=== PATIENT | female | born 1990 | race Caucasian/White ===

== ENCOUNTER 2025-06-13 23:22 | Emergency (ER) | payer OTHER, SELFPAY ==
--- NOTE | ~2025-06-13 | CT_ITS ---
CLINICAL HISTORY: trauma CT head without contrast Comparison: None provided. Findings: No intracranial mass, midline shift, hydrocephalus, or acute hemorrhage. Visualized paranasal sinuses and mastoid air cells appear clear. No acute skull fracture. Mild right frontoparietal scalp swelling. Impression: 1. No acute intracranial abnormality. No acute intracranial hemorrhage. 2. Mild right frontoparietal scalp swelling. No acute calvarial fracture. This document has been electronically signed by: Huang Norris MD on 06/14/2025 01:34:47
--- NOTE | ~2025-06-13 | XR_ITS ---
CLINICAL HISTORY: trauma 3 view right hand Comparison: None provided Findings: Bones intact. No dislocations. No radiopaque foreign body. IMPRESSION: 1. No acute fracture or dislocation injury identified at the right hand This document has been electronically signed by: Huang Norris MD on 06/14/2025 00:32:25
--- NOTE | ~2025-06-13 | CT_ITS ---
CLINICAL HISTORY: trauma CT cervical spine without contrast Comparison: None provided. Findings: The visualized portions of the bilateral lung apices appear clear. There is reversal of the normal cervical lordosis. No cervical spondylolisthesis identified. No acute fractures or dislocations. No significant degenerative endplate changes at the cervical spine. Impression: 1. Reversal of the normal cervical lordosis. This finding is nonspecific and may be positional and/or related to muscle spasm. No acute fracture or dislocation injury identified at the cervical spine. This document has been electronically signed by: Huang Norris MD on 06/14/2025 01:21:13
--- NOTE | ~2025-06-13 | CT_ITS ---
CLINICAL HISTORY: facial trauma CT maxillofacial without contrast Comparison: None provided. Findings: No acute fractures. Temporomandibular joints intact. The bilateral globes appear intact. No retrobulbar hematoma. Paranasal sinuses and mastoid air cells appear clear. Mild soft tissue swelling over the anterior aspect of the left maxilla on axial image number 97 of series 10. Impression: 1. No acute fracture or dislocation injury of the facial bones identified. 2. Mild soft tissue swelling identified over the anterior aspect of the maxilla as described above, suggesting posttraumatic change. This document has been electronically signed by: Huang Norris MD on 06/14/2025 01:32:10
[2025-06-13 23:29] VITALS: BP 130/71; PULSE 96; RESP 16; TEMP 36.6; O2SAT 98; BMI 28.2
--- NOTE | 2025-06-13 23:51 | PC.NURSE ---
hand and face wounds cleaned
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
[2025-06-14 00:18] LABS: UPreg QC Valid YES
--- OUTSIDE RECORDS SUMMARY | 2025-06-14 00:51 | XMS_ITS | Clinical Summary ---
Author Organization [facility] Address [address] [place] [address] Care Team Providers Care General Cleaner Name Role Phone Pcp, No Primary Care Provider Unavailabl e Social History Tobacco Use Types Packs/Day Years Used Date Smoking Tobacco: Never Assessed Comments Unknown Sex and Gender Information Value Date Recorded Sex Assigned at Not on file Legal Sex Female 3:25 PM EDT Gender Identity Not on file Sexual Orientation Not on file Plan of Treatment Health Maintenance Due Date Last Done Comments Hepatitis C Virus Screening 1990 HIV Screening 2003 DTaP/Tdap/Td Vaccines (1 - Tdap) 2009 Hepatitis B Vaccines (1 of 3 - 19+ 3-dose series) 2009 Pap Smear (Ages 21-65) 2011 Influenza Vaccine 02/15/2025 COVID-19 Vaccine (1 - 2023-2 5 season) 2025 HPV Vaccines (No Doses Required) Completed Pneumococcal Vaccine: Pediat kim (0-5 Years) and At-Risk Patients (6 to 49 Years) Aged Out No longer eligible b ased on patient's age to complete this topic Insurance [facility] [employer] [facility] Care Teams General Cleaner Relationship Specialty Start Date End Date Pcp, No [address] [place] [address] PCP - General 04/02/20
--- OUTSIDE RECORDS SUMMARY | 2025-06-14 00:51 | XMS_ITS | Encounter Summary ---
Author Organization [facility] Address [address] [place] [address] Care Team Providers Care Certification Engineer Name Role Phone Pcp, No Primary Care Provider Unavailabl e Encounter Details Date Type Department Care Team (Late st Contact Info) Description 04/03/2020 Scanned Document [facility] [address] [place] [address] Provider, Generic Social History Tobacco Use Types Packs/Day Years Used Date Smoking Tobacco: Never Assessed Comments Unknown Sex and Gender Information Value Date Recorded Sex Assigned at Not on file Legal Sex Female 3:25 PM EDT Gender Identity Not on file Sexual Orientation Not on file COVID-19 Exposure Response Date Recorded In the last month, have you been in contact with someone who was confirmed or suspected to have Coronavirus / COVID-19? No / Unsure 04/02/2020 4:02 PM EDT documented as of this encounter Plan of Treatment Not on file documented as of this encounter Procedures Procedure Name Priority Date/Time Associated Diagnosis Comments BOOKING SHEETS-SCAN 04/03/2020 documented in this encounter Results * BOOKING SHEETS-SCAN (04/03/2020) Narrative 04/03/2020 Ordered by an unspecified provider. us Generic Provider HX AMB PROCEDURES Final Result documented in this encounter Visit Diagnoses Not on filedocumented in this encounter Care Teams Certification Engineer Relationship Specialty Start Date End Date Pcp, No [address] [place] [address] PCP - General 04/02/20 documented as of this encounter
[2025-06-14] MEDS: Diphth,Pertus(ACell),Tet Adult 0.5 ML SYRINGE IM (00:59)
[2025-06-14 01:43] VITALS: BP 109/63; PULSE 75; RESP 18; TEMP 36.2; O2SAT 98
== END 2025-06-14 01:44 | disposition home or self-care (01) ==
PROVIDERS: Emergency Provider Emergency Medicine
DX: S60.511A Abrasion of right hand, initial encounter (principal); S00.81XA Abrasion of other part of head, initial encounter; S39.91XA Unspecified injury of abdomen, initial encounter; M54.2 Cervicalgia; R51.9 Headache, unspecified; M79.641 Pain in right hand; R10.22 Pelvic and perineal pain left side; R40.2410 Glasgow coma scale score 13-15, unspecified time; X58.XXXA Exposure to other specified factors, initial encounter; Y93.9 Activity, unspecified; Y92.9 Unspecified place or not applicable; Y99.8 Other external cause status; Z79.899 Other long term (current) drug therapy; Z23 Encounter for immunization
CPT/HCPCS: 12041; 12051; 70450; 70486; 72125; 73130; 76604; 76705; 81025; 90471; 90715; 93308; 99284

== ENCOUNTER → 2025-06-13 23:32 | Outpatient (BNV) | payer OTHER, SELFPAY | PROVIDERS: Emergency Provider Emergency Medicine; Visit Provider Radiology Diagnostic Radiology | DX: R22.0 Localized swelling, mass and lump, head (principal); Z04.3 Encounter for examination and observation following other accident | CPT/HCPCS: 70450; 70486; 72125 ==

== ENCOUNTER → 2025-06-14 | Outpatient (BNV) | payer OTHER, SELFPAY | PROVIDERS: Emergency Provider Emergency Medicine; Visit Provider Radiology Diagnostic Radiology | DX: Z04.3 Encounter for examination and observation following other accident (principal) | CPT/HCPCS: 73130 ==